=== PATIENT | male | born 1995 | race Caucasian/White ===

== ENCOUNTER 2024-10-02 07:22 | Emergency (ER) | payer OTHER ==
[~2024-10-02] VITALS: Ht 188 cm; Wt 98.0 kg
[2024-10-02] MEDS ORDERED: OMEPRAZOLE20 MG PO (07:43)
[2024-10-02] MEDS ORDERED: HYDROXYZINE HCL25 MG PO (07:43)
--- OUTSIDE RECORDS SUMMARY | 2024-10-02 07:48 | XMS ---
PreManage Notification: CESAR LUTZ [facility] Clinical Manager Events No recent Security Events currently on file CRITERIA MET - [facility] - 2 Visits in 30 Days CARE PROVIDERS -, [facility] Dentist: Bronc Buster [facility] [place] PHONE: [phone] -Ana- Dentist: Bronc Buster Current [facility] PHONE: [phone] AYAH JIMENEZ Physician Current PHONE: Unknown ALEKSANDR OSWALD [facility] Current PHONE: [phone] [facility] Clinic/Center: [facility] Qualified [facility] Current [facility] \[facility] (FQ) [facility] PHONE: [phone] Ross has no Care Guidelines for this patient. Artur VISIT COUNT (12 MO.) [address] [place] [address] PIERO Read TOTAL 5 NOTE: Visits indicate total known visits. ED/UCC VISIT TRACKING (12 MO.) 10/02/2024 07:23 [facility] [place] TYPE: Emergency COMPLAINT: - SKIN PROBLEM 09/20/2024 18:54 [facility] [place] TYPE: Emergency DIAGNOSES: - Acute suppurative otitis media without spontaneous rupture of ear drum, right ear - Alcohol use, unspecified with withdrawal, uncomplicated - Viral infection, unspecified - General 03/14/2024 13:25 [facility] [place] TYPE: Emergency DIAGNOSES: - Swimmer's ear, right ear - ear ache 01/09/2024 16:14 [facility] [place] TYPE: Emergency DIAGNOSES: - Cyclical vomiting syndrome unrelated to migraine - Hematemesis - VOMITING BLOOD 01/03/2024 18:53 [facility] [place] TYPE: Emergency COMPLAINT: - NOT FEELING WELL DIAGNOSES: - NOT FEELING WELL INPATIENT VISIT TRACKING (12 MO.) No inpatient visits to display in this time frame [email or web address]
[2024-10-02 08:30] LABS: BASOPHILS 0.5 % (0-2); EOSINOPHILS 1.7 % (0-6); HEMATOCRIT 41.5 % (35.0-50.0); HEMOGLOBIN 13.7 g/dL (12.0-18.0); LYMPHOCYTES 12.1 % (24-44); MCH 26.8 (27-36); MCHC 33.1 g/dl (30-36); MCV 80.9 fl (81-99); MONOCYTES 9.5 % (0-12); NEUTROPHILS 76.2 % (39-80); PLATELET COUNT 375 K/uL (140-440); RBC 5.13 M/ul (4.3-5.7); RDW 14.7 (10.5-15.0)
[2024-10-02 08:49] LABS: ALBUMIN 3.5 g/dL (3.4-5.0); ALBUMIN/GLOBULIN RATIO 0.83 (1.1-2.4); ANION GAP 13.4 (7-21); BILIRUBIN, TOTAL 0.5 ng/dL (0.2-1.0); BUN/CREATININE RATIO 13.33 (6.0-28.6); CALCIUM 9.3 mg/dL (8.5-10.1); CREATININE, SERUM 0.75 mg/dL (0.70-1.30); POTASSIUM 4.4 mmol/L (3.5-5.1); PROTEIN, TOTAL 7.7 g/dL (6.4-8.2)
[2024-10-02 12:37] VITALS: BP 136/94
== END 2024-10-02 12:37 | disposition home or self-care (01) ==
LOC: ED 07:22
PROVIDERS: Emergency Medicine
DX: C85.98 Non-Hodgkin lymphoma, unspecified, lymph nodes of multiple sites (principal); Z79.899 Other long term (current) drug therapy
CPT/HCPCS: 36415; 70491; 71260; 74177; 80053; 83615; 84550; 85025; 85651; 86140; 86308; 99284-25; Q9967